=== PATIENT | male | born 1975 | race Caucasian/White ===

== ENCOUNTER 2018-11-21 14:49 | Day surgery (SDC) | payer MEDICARE ==
[2018-11-21] VITALS (8 sets, daily range): BP systolic 104–138; BP diastolic 61–73
[~2018-11-21] VITALS: Ht 177.8 cm; Wt 128.6 kg
[~2018-11-21 14:49] MED LIST: CYCL5TAB14; HYDR8TAB16 PO
[2018-11-21] MEDS ORDERED: LORazepam 0.5 MG tablet PO PRN (15:05)
[2018-11-21] MEDS ORDERED: normal saline 1,000 ML IV SCH (15:05)
[2018-11-21] MEDS ORDERED: diphenhydrAMINE 25mg capsule PO PRN (15:05)
[2018-11-21] MEDS ORDERED: POTA10TA19 PO (15:16)
[2018-11-21] MEDS ORDERED: FURO-150 PO (15:16)
[2018-11-21] MEDS ORDERED: METO25TA6 PO (15:17)
[2018-11-21] MEDS ORDERED: ASPI81TA52 PO (15:17)
[2018-11-21] MEDS ORDERED: midazolam 2 mg/2 ml injection ONE ×2 (16:29→17:21)
[2018-11-21] MEDS ORDERED: fentaNYL/PF 50MCG/1 ML 2ML syringe ONE (16:29)
[2018-11-21] MEDS ORDERED: iohexol 350MG/ML 100ml bottle IV ONE (16:30)
[2018-11-21] MEDS ORDERED: LIDOcaine 1% (10mg/ml)w/preservative injection 20ml MDV ONE (16:30)
[2018-11-21] MEDS ORDERED: HYDROcodone/acetaminophen 5mg/325mg tablet PO PRN (18:15)
[2018-11-21] MEDS ORDERED: ondansetron/PF 4mg/2ml inj IV PRN (18:15)
[2018-11-21] MEDS ORDERED: proCHLORperazine 10 MG/2 ml inj IV PRN (18:15)
[2018-11-21] MEDS ORDERED: HYDROcodone/acetaminophen 10/325mg tab PO PRN (18:15)
== END 2018-11-21 20:00 | disposition home or self-care (01) ==
LOC: SSTAY O 14:49
PROVIDERS: ATTEND Internal Medicine Interventional Cardiology
DX: I20.0 Unstable angina (principal); G35 Multiple sclerosis; Z79.82 Long term (current) use of aspirin
CPT/HCPCS: 93005; 93460; 99152; 99153; C1769; J1644; J2001; J2250; J3010; J7030; Q0163; Q9967; A4620; A6258

== ENCOUNTER 2021-05-29 15:49 | Emergency (ER) | payer MEDICARE ==
[~2021-05-29] VITALS: Ht 175.3 cm; Wt 122.0 kg
[~2021-05-29 15:49] MED LIST changes: +ASPI81TA52 PO; -CYCL5TAB14; +FURO-150 PO; -HYDR8TAB16 PO; +LOP25T PO; +POTA-192 PO
[2021-05-29 18:15] VITALS: BP 141/88
[2021-05-29 18:56] LABS: BASOPHILS # (AUTO) 0.1 X10'3 (0-0.2); BASOPHILS % (AUTO) 0.8 % (0-1); EOSINOPHILS # (AUTO) 0.3 X10'3 (0-0.9); EOSINOPHILS % (AUTO) 2.6 % (0-6); LYMPHOCYTES % (AUTO) 28.1 % (21-51); MEAN CORPUSCULAR HEMOGLOBIN 30.4 PG (27.0-31.0); MEAN CORPUSCULAR HGB CONC 34.1 g/dL (33.0-36.5); MEAN CORPUSCULAR VOLUME 89.1 FL (78-98); MEAN PLATELET VOLUME 7.4 FL (7.4-10.4); MONOCYTES # (AUTO) 0.9 X10'3 (0-0.9); MONOCYTES % (AUTO) 8.5 % (2-12); NEUTROPHILS # (AUTO) 6.4 X10'3 (1.8-7.7); PLATELET COUNT 367 X10'3 (140-440); RED BLOOD COUNT 4.94 X10'6 (4.70-6.10); RED CELL DISTRIBUTION WIDTH 13.6 % (11.5-14.5); WHITE BLOOD COUNT 10.6 X10'3 (4.5-11.0)
[2021-05-29 19:10] LABS: ALANINE AMINOTRANSFERASE 35 U/L (12-78); ALBUMIN/GLOBULIN RATIO 1.2 (1.1-1.5); ALKALINE PHOSPHATASE 94 IU/L (46-116); ANION GAP 9 (8-16); ASPARTATE AMINO TRANSFERASE 22 U/L (10-37); BILIRUBIN,TOTAL 0.3 MG/DL (0.1-1.0); BLOOD UREA NITROGEN 16 MG/DL (7-18); CALCIUM 8.9 MG/DL (8.5-10.1); CHLORIDE 104 MMOL/L (99-107); GLUCOSE 94 MG/DL (70-104); POTASSIUM 4.3 MMOL/L (3.5-5.1); SODIUM 142 MMOL/L (135-145); TOTAL PROTEIN 7.3 G/DL (6.4-8.2); eGFR 80 ML/MIN
[2021-05-29] MEDS ORDERED: iohexol 300mg/ml 100ml inj. ONE (19:25)
[2021-05-30] MEDS ORDERED: GABA-534 PO (21:10)
[2021-05-30] MEDS ORDERED: CHOL20002 PO (21:10)
== END 2021-05-29 20:39 | disposition home or self-care (01) ==
LOC: ER 15:49
DX: M79.662 Pain in left lower leg (principal); M79.89 Other specified soft tissue disorders; M71.22 Synovial cyst of popliteal space [Baker], left knee; Z98.890 Other specified postprocedural states; Z79.82 Long term (current) use of aspirin; Z79.899 Other long term (current) drug therapy
CPT/HCPCS: 36415; 73701; 80053; 85025; 93971; 99285; Q9967

== ENCOUNTER 2024-03-05 08:43 | Outpatient (CLI) | payer BC, MEDICARE ==
[~2024-03-05 08:43] MED LIST changes: -ASPI81TA52 PO; +CHOL20002 PO; +GABA-535 PO; -LOP25T PO; -POTA-192 PO
== END 2024-03-05 23:59 | disposition home or self-care (01) ==
LOC: MRI 08:43
PROVIDERS: ATTEND Orthopaedic Surgery
DX: S83.231A Complex tear of medial meniscus, current injury, right knee, initial encounter (principal); M22.41 Chondromalacia patellae, right knee; M25.561 Pain in right knee; X58.XXXA Exposure to other specified factors, initial encounter; Y93.89 Activity, other specified; Y92.89 Other specified places as the place of occurrence of the external cause; Y99.8 Other external cause status
CPT/HCPCS: 73721